=== PATIENT | female | born 1960 | race Two or more races ===

== ENCOUNTER 2024-06-26 01:14 | Emergency (ER) | payer OTHER ==
[~2024-06-26] VITALS: Ht 167.6 cm; Wt 99.8 kg
[2024-06-26] MEDS ORDERED: SYNTHROID125 MCG PO (01:26)
[2024-06-26] MEDS ORDERED: LOSARTAN POTAS100 MG PO (01:27)
[2024-06-26] MEDS ORDERED: VASOTEC10 MG PO (01:27)
[2024-06-26] MEDS ORDERED: DIPHENHYDRAMINE HCL 50 MG/ML VIAL 1ML IV STA (02:15)
[2024-06-26] MEDS ORDERED: METHYLPREDNISOLONE SOD SUCC 125 MG VIAL IV STA (02:15)
[2024-06-26] MEDS ORDERED: FAMOTIDINE/PF 20 MG/2 ML VIAL IV PUSH STA (02:15)
[2024-06-26] MEDS ORDERED: MEDROL8 MG PO (04:07)
== END 2024-06-26 04:13 ==
LOC: ER 01:16
DX: L50.9 Urticaria, unspecified (principal); I10 Essential (primary) hypertension